=== PATIENT | female | born 1965 | race Caucasian/White ===

== ENCOUNTER 2017-04-04 21:29 | Emergency (ER) | payer MEDICAID ==
[~2017-04-04] VITALS: Ht 167.6 cm; Wt 57.4 kg
[2017-04-04 21:31] VITALS: BP 109/70
[2017-04-04] MEDS ORDERED: CEPHALEXIN 500 MG CAPSULE PO ONE (22:01)
[2017-04-04] MEDS ORDERED: CEPHALEXIN 500 MG CAPSULE ONE (22:03)
== END 2017-04-04 23:31 | disposition home or self-care (01) ==
LOC: ED 22:44
DX: S80.811A Abrasion, right lower leg, initial encounter (principal); L03.115 Cellulitis of right lower limb; Z87.891 Personal history of nicotine dependence; X58.XXXA Exposure to other specified factors, initial encounter; Y93.89 Activity, other specified; Y92.410 Unspecified street and highway as the place of occurrence of the external cause; Y99.8 Other external cause status
CPT/HCPCS: 99284

== ENCOUNTER 2017-04-07 21:51 | Emergency (ER) | payer MEDICAID ==
[~2017-04-07] VITALS: Ht 167.6 cm; Wt 58.0 kg
[2017-04-07] MEDS ORDERED: FAMOTIDINE 20 MG/2 ML ONE (22:29)
[2017-04-07] MEDS ORDERED: ONDANSETRON 2MG/ML, 2ML ONE (22:29)
[2017-04-07] MEDS ORDERED: MORPHINE SULFATE 4 MG/ML, 1ML ONE (22:29)
[2017-04-07] MEDS ORDERED: MORPHINE SULFATE 4 MG/ML, 1ML IVPush PRN (22:30)
[2017-04-07] MEDS ORDERED: FAMOTIDINE 20 MG/2 ML IVP ONE (22:30)
[2017-04-07] MEDS ORDERED: ONDANSETRON 2MG/ML, 2ML IVPush ONE (22:30)
[2017-04-07] MEDS ORDERED: SODIUM CHLORIDE 0.9% 1,000ML IVBOLUS ONE (22:30)
[2017-04-07 22:51] LABS: HEMATOCRIT 46.9 % (34.6-47.8); HEMOGLOBIN 15.6 g/dL (11.7-16.4); WHITE BLOOD COUNT 11.6 x10^3/uL (3.4-10)
[2017-04-07 23:02] LABS: ASPARTATE AMINO TRANSFERASE 9 U/L (15-37); BLOOD UREA NITROGEN 12 mg/dL (7-18)
[2017-04-07 23:41] VITALS: BP 108/49
== END 2017-04-08 01:00 | disposition home or self-care (01) ==
LOC: ED 23:52
DX: T36.1X5A Adverse effect of cephalosporins and other beta-lactam antibiotics, initial encounter (principal); E86.0 Dehydration; Z87.891 Personal history of nicotine dependence
CPT/HCPCS: 36415; 80053; 81001; 83690; 85025; 96361; 96374; 96375; 99284; J2405; J7030; S0028

== ENCOUNTER 2020-06-28 19:08 | Emergency (ER) | payer MEDICAID ==
[~2020-06-28] VITALS: Ht 167.6 cm; Wt 58.9 kg
--- NOTE | 2020-06-28 21:14 | NUR ---
FIRST PT CONTACT
--- NOTE | 2020-06-28 21:15 | NUR ---
CC OF FOOD STUCK IN THROAT. PT ATE [place] [employer] LAST NIGHT AND STATED WHEN SHE SWALLOWED IT GOT STUCK AND WOULDNT COME BACK UP. THIS AM PT THREW UP "A DIAZ BRICK OF STEAK" AND STATES SHE CAN STILL FEEL FOOD STUCK. WHEN PT TRIED TO THROW UP NOW WHITE FOAM COMES UP. HAS PAIN IN THROAT AND CHEST /. PT ALSO STATES SHE HAS HAD THIS HAPPEN BEFORE BUT WAS ABLE TO THROW FOOD UP. VSS, HIGH 90'S O2 SAT ON RA, ABLE TO SPEAK CLEAR FULL SENTENCES.
[2020-06-28] MEDS ORDERED: ONDANSETRON 2MG/ML, 2ML ONE (21:23)
[2020-06-28] MEDS ORDERED: MORPHINE SULFATE 4 MG/ML, 1ML ONE (21:24)
[2020-06-28] MEDS ORDERED: MORPHINE SULFATE 4 MG/ML, 1ML IVPush PRN (21:30)
[2020-06-28] MEDS ORDERED: SODIUM CHLORIDE FLUSH 10ML SYR IVF ONE (21:30)
[2020-06-28] MEDS ORDERED: ONDANSETRON 2MG/ML, 2ML IVPush ONE (21:30)
[2020-06-28] MEDS ORDERED: SODIUM CHLORIDE 0.9% 1,000ML IVBOLUS ONE (21:30)
--- NOTE | 2020-06-28 22:25 | NUR ---
DR LORA TO BEDSIDE AT THIS TIME.
[2020-06-28] MEDS ORDERED: PROPOFOL 10 MG/ML, 20ML ONE (22:30)
--- NOTE | 2020-06-28 22:43 | NUR ---
PT MOVED TO TRAUMA 2 FOR PROCEDURAL SEDATION AND UPPER ENDOSCOPY. CONSCENT SIGNED, DAUGHTER TO LOBBY, BOTH AWARE OF THE RISK/BENEFITS OF PROCEDURE. PT SEDATED WITH PROPOFOL WITH GOOD RESULTS NOTED, TOLERATED PROCEDURE WELL, COMPLETED AT 2255, NO NOTED STRICTURES, NO ESOPHAGITIS NOTED BY GI.
[2020-06-28] MEDS ORDERED: PROPOFOL 10 MG/ML, 20ML IVPush ONE (23:00)
--- NOTE | 2020-06-28 23:13 | NUR ---
PT TOLERATING PO FLUIDS AT THIS TIME, AA AND O TIMES 4, DAUGHTER AT BEDSIDE.
[2020-06-28 23:50] VITALS: BP 106/59
== END 2020-06-29 00:15 | disposition home or self-care (01) ==
LOC: ED 23:58
DX: T18.128A Food in esophagus causing other injury, initial encounter (principal); R11.2 Nausea with vomiting, unspecified; R94.31 Abnormal electrocardiogram [ECG] [EKG]; Z87.891 Personal history of nicotine dependence; X58.XXXA Exposure to other specified factors, initial encounter; Y93.89 Activity, other specified; Y92.89 Other specified places as the place of occurrence of the external cause; Y99.8 Other external cause status
CPT/HCPCS: 43247; 93005; 96361; 96374; 96375; 99152; 99285; J2270; J2405; J7030